=== PATIENT | female | born 1975 | race Caucasian/White ===

== ENCOUNTER 2016-12-21 09:11 | Emergency (ER) | payer OTHER, MEDICAID ==
[~2016-12-21 09:11] MED LIST: BAYER CHEWABLE81 MG PO; BENICAR20 MG PO; CELEBREX50 MG; HYDROCODONE-APA1 TAB PO; STRATTERA60 MG PO
[2016-12-21 09:48] LABS: APPEARANCE HAZY (CLEAR); BILIRUBIN NEGATIVE (NEGATIVE); COLOR YELLOW (YELLOW); GLUCOSE NEGATIVE (NEGATIVE); KETONE NEGATIVE (NEGATIVE); LEUKOCYTE ESTERASE 1+ (NEGATIVE); NITRITE NEGATIVE (NEGATIVE); PROTEIN NEGATIVE (NEGATIVE); SPECIFIC GRAVITY 1.015 (1.005-1.020); UROBILINOGEN NORMAL (NORMAL)
[2016-12-21 09:49] LABS: BACTERIA MODERATE /hpf (NONE SEEN); MUCUS <1+ /lpf (NONE SEEN); RED CELLS - URINE 0-5 /hpf (0-5)
[2016-12-21 09:56] LABS: BASOPHILS 0.4 % (0.0-2.0); EOSINOPHILS 3.5 % (0-7); HEMATOCRIT 38.2 % (36.0-48.0); HEMOGLOBIN 12.3 g/dL (12-16); IMMATURE GRANULOCYTES 0.2 % (0-5); LYMPHOCYTES 18.2 % (15-50); MCH 25.7 pg (26.0-34.0); MCHC 32.2 g/dL (31.0-37.0); MCV 79.9 fL (80.0-100.0); MEAN PLATELET VOLUME 9.3 fL (7.4-10.4); MONOCYTES 6.6 % (2-11); NEUTROPHILS 71.1 % (40-80); PLATELET COUNT 439 10x3/uL (130-400); RBC 4.78 10x6/uL (4.00-5.40); RDW 14.5 % (11.5-14.5); WBC 12.7 10x3/uL (4.8-10.8)
[2016-12-21 10:07] LABS: AMYLASE - SERUM 52 U/L (25-115); LIPASE 165 U/L (73-393)
[2016-12-21 10:33] LABS: ANION GAP 13.9 mmol/L (8-16); BILIRUBIN - TOTAL 0.29 mg/dL (0.2-1.3); CALCIUM 9.4 mg/dL (8.5-10.1); CARBON DIOXIDE 27.2 mmol/L (21.0-32.0); POTASSIUM - SERUM 4.1 mmol/L (3.5-5.1); PROTEIN - SERUM 8.1 g/dL (6.4-8.2)
== END 2016-12-21 13:00 | disposition home or self-care (01) ==
LOC: D.ER 09:11
PROVIDERS: Emergency Medicine
DX: R10.9 Unspecified abdominal pain (principal); N39.0 Urinary tract infection, site not specified; I10 Essential (primary) hypertension; K21.9 Gastro-esophageal reflux disease without esophagitis

== ENCOUNTER 2017-08-25 19:42 | Emergency (ER) | payer OTHER, MEDICAID | END 2017-08-25 21:20 | disposition home or self-care (01) | LOC: D.ER 19:42 | DX: S46.911A Strain of unspecified muscle, fascia and tendon at shoulder and upper arm level, right arm, initial encounter (principal); X58.XXXA Exposure to other specified factors, initial encounter; Y93.89 Activity, other specified; Y92.029 Unspecified place in mobile home as the place of occurrence of the external cause; K21.9 Gastro-esophageal reflux disease without esophagitis; I10 Essential (primary) hypertension ==

== ENCOUNTER 2018-12-19 12:41 | Emergency (ER) | payer OTHER, MEDICAID ==
[~2018-12-19] VITALS: Ht 167.6 cm; Wt 141.1 kg
[2018-12-19 12:51] VITALS: Ht 167.6 cm; Wt 141.1 kg
[2018-12-19 16:11] VITALS: BP 168/90
== END 2018-12-19 16:12 | disposition home or self-care (01) ==
LOC: D.ER 12:41
DX: S89.92XA Unspecified injury of left lower leg, initial encounter (principal); W18.30XA Fall on same level, unspecified, initial encounter; Y93.89 Activity, other specified; Y92.019 Unspecified place in single-family (private) house as the place of occurrence of the external cause

== ENCOUNTER 2019-01-11 19:49 | Emergency (ER) | payer OTHER, MEDICAID ==
[~2019-01-11] VITALS: Ht 167.6 cm; Wt 144.1 kg
[2019-01-11 20:03] VITALS: Ht 167.6 cm; Wt 144.1 kg
[2019-01-11] MEDS ORDERED: METOPROLOL TART50 MG PO (20:04)
[2019-01-11] MEDS ORDERED: KLONOPIN0.5 MG PO (20:05)
[2019-01-11] MEDS ORDERED: MAXZIDE 75/501 TAB PO (20:12)
[2019-01-11 20:34] LABS: BASOPHILS 0.4 % (0-2); EOSINOPHILS 5.5 % (0-7); HEMATOCRIT 39.3 % (36.0-48.0); HEMOGLOBIN 13.1 g/dL (12-16); IMMATURE GRANULOCYTES 0.3 % (0-5); LYMPHOCYTES 19.7 % (15-50); MCH 26.7 pg (26.0-34.0); MCHC 33.3 g/dL (31.0-37.0); MEAN PLATELET VOLUME 9.3 fL (7.4-10.4); MONOCYTES 8.7 % (2-11); NEUTROPHILS 65.4 % (40-80); RBC 4.91 10x6/uL (4.00-5.40); RDW 14.2 % (11.5-14.5)
[2019-01-11 20:35] LABS: PLATELET COUNT 322 10x3/uL (130-400)
[2019-01-11 20:54] LABS: ALBUMIN 3.6 g/dL (3.4-5.0); ALKALINE PHOSPHATASE 84 U/L (46-116); ALT (SGPT) 32 U/L (10-68); BILIRUBIN - TOTAL 0.25 mg/dL (0.2-1.3); CALC OSMOLALITY 274 mosm/kg (275-300); CALCIUM 8.8 mg/dL (8.5-10.1); CARBON DIOXIDE 29.3 mmol/L (21.0-32.0); CHLORIDE - SERUM 100 mmol/L (98-107); CREATININE - SERUM 0.8 mg/dL (0.6-1.3); GLUCOSE 99 mg/dL (74-106); POTASSIUM - SERUM 3.3 mmol/L (3.5-5.1); PROTEIN - SERUM 7.5 g/dL (6.4-8.2); SODIUM 137 mmol/L (136-145); UREA NITROGEN 16 mg/dL (7-18); eGFR NON AFRICAN AMERICAN 82 mL/min (90-120)
[2019-01-11 21:05] LABS: CKMB 0.3 U/L (0.0-3.6); CREATINE KINASE 52 UL (21-215); INR 0.96 (0.85-1.17); PROTIME 12.3 SECONDS (11.6-15.0)
[2019-01-11 21:12] LABS: TROPONIN-I < 0.017 ng/mL (0.000-0.060)
[2019-01-11] MEDS ORDERED: PROTONIX20 MG PO (22:05)
[2019-01-11 22:46] VITALS: BP 101/63
== END 2019-01-11 22:48 | disposition home or self-care (01) ==
LOC: D.ER 19:49
PROVIDERS: Family Medicine
DX: I10 Essential (primary) hypertension (principal); E87.6 Hypokalemia

== ENCOUNTER 2019-10-29 19:19 | Observation (INO) | payer OTHER ==
[~2019-10-29] VITALS: Ht 167.6 cm; Wt 141.9 kg
[~2019-10-29 19:19] MED LIST changes: +KLONOPIN0.5 MG PO; +MAXZIDE 75/501 TAB PO; +METOPROLOL TART50 MG PO; +PROTONIX20 MG PO
[2019-10-29] MEDS ORDERED: TUMERIC (19:31)
[2019-10-29] MEDS ORDERED: POTASSIUM99 M1 PO (19:31)
[2019-10-29] MEDS ORDERED: HAWTHORNE BERRY (19:32)
[2019-10-29] MEDS ORDERED: POTASSIUM CHLOR8 ME1 (19:32)
[2019-10-29 19:54] LABS: BASOPHILS 0.4 % (0-2); EOSINOPHILS 5.7 % (0-7); HEMATOCRIT 41.1 % (36.0-48.0); HEMOGLOBIN 13.4 g/dL (12-16); IMMATURE GRANULOCYTES 0.2 % (0-5); LYMPHOCYTES 25.9 % (15-50); MCH 26.7 pg (26.0-34.0); MCHC 32.6 g/dL (31.0-37.0); MEAN PLATELET VOLUME 9.2 fL (7.4-10.4); NEUTROPHILS 60.8 % (40-80); PLATELET COUNT 357 10x3/uL (130-400); RBC 5.01 10x6/uL (4.00-5.40); RDW 14.5 % (11.5-14.5); WBC 13.2 10x3/uL (4.8-10.8)
[2019-10-29 20:03] LABS: APTT 28.8 SECONDS (22.8-39.4); INR 0.99 (0.85-1.17)
[2019-10-29 20:05] LABS: CALC OSMOLALITY 282 mosm/kg (275-300); CALCIUM 9.1 mg/dL (8.5-10.1); CARBON DIOXIDE 31.6 mmol/L (21.0-32.0); CHLORIDE - SERUM 104 mmol/L (98-107); CREATININE - SERUM 1.1 mg/dL (0.6-1.3); GLUCOSE 92 mg/dL (74-106); POTASSIUM - SERUM 3.2 mmol/L (3.5-5.1); SODIUM 141 mmol/L (136-145); UREA NITROGEN 18 mg/dL (7-18); eGFR NON AFRICAN AMERICAN 57 mL/min (90-120)
[2019-10-29 20:21] LABS: ALBUMIN 3.7 g/dL (3.4-5.0); ALKALINE PHOSPHATASE 103 U/L (30-120); ALT (SGPT) 39 U/L (10-68); BILIRUBIN - TOTAL 0.24 mg/dL (0.2-1.3); CKMB 0.3 U/L (0.0-3.6); CREATINE KINASE 65 UL (21-215); MAGNESIUM - SERUM 2.2 mg/dL (1.8-2.4); PROTEIN - SERUM 7.6 g/dL (6.4-8.2)
[2019-10-29 20:22] LABS: TROPONIN-I < 0.017 ng/mL (0.000-0.060)
[2019-10-29 21:21] LABS: HCG URINE NEGATIVE (NEGATIVE)
[2019-10-29 21:59] VITALS: BP 143/73
--- NOTE | 2019-10-29 22:45 | NUR ---
PT ARRIVED TO ROOM FROM ER VIA BED. PT AMBULATORY, GAIT SLOW AND STEADY. DENIES CHEST PAIN AT THIS TIME. CALL LIGHT IN REACH.
--- NOTE | 2019-10-29 23:48 | NUR ---
PT DENIES CHEST PAIN OR DISCOMFORT. PT RESTING IN BED. WILL CTM.
[2019-10-29 23:55] VITALS: BP 122/73; BMI 50.5
[2019-10-30] VITALS: BP 120/72
[2019-10-30 00:54] LABS: CKMB 0.3 U/L (0.0-3.6); CREATINE KINASE 54 UL (21-215)
[2019-10-30 00:58] LABS: TROPONIN-I < 0.017 ng/mL (0.000-0.060)
[2019-10-30 04:00] VITALS: BP 118/66
[2019-10-30 06:57] LABS: CKMB 0.3 U/L (0.0-3.6); CREATINE KINASE 51 UL (21-215); TROPONIN-I < 0.017 ng/mL (0.000-0.060)
[2019-10-30 08:35] VITALS: Ht 167.6 cm; Wt 141.9 kg
[2019-10-30 09:54] VITALS: BP 114/56
[2019-10-30] MEDS ORDERED: PROTONIX40 MG PO (10:17)
[2019-10-30] MEDS ORDERED: CARAFATE1 G PO (10:18)
--- NOTE | 2019-10-30 10:55 | NUR ---
UPON ADMIT, PATIENT HAS NOT HAD A FLU SHOT. WHEN QUESTIONED, SHE REFUSED ONE.
--- NOTE | 2019-10-30 11:40 | NUR ---
IV AND TELEMETRY DCD. DC PLANS GIVEN. UNDERSTANDING VOICED. ESCORTED TO CAR BY W/C.
--- NOTE | 2019-10-31 08:04 | MORECARE ---
CASE MANAGEMENT DISCHARGE SUMMARY PATIENT: DEVIKA FELICIANO UNIT: [id number] ADM DATE: 10/29/19 AGE: 44 : 71 SEX: F ROOM/BED: D.2116 AUTHOR: CHANNING DIAZ PHYSICIAN: REFERRING PHYSICIAN: SHAHNAZ SERRANO MD DATE OF SERVICE: 10/31/19 Discharge Plan Patient Name: DEVIKA FELICIANO Facility: [facility]:[place] : 1975 Planned Disposition: Home Anticipated Discharge Date: 10/30/19 Discharge Date: 10/30/2019 Expected LOS: 1 Initial Reviewer: [email or web address] Initial Review Date: 10/31/2019 Generated: 10/31/19 9:04 am Patient Name: DEVIKA FELICIANO Page [id number] at 0804 All edits/amendments must be made on the electronic document DICTATION DATE: 10/31/19 0804 WAREHOUSE PICKER: LUCIANO 10/31/19 08 RPT#: [id number] DC DATE:10/30/19 STATUS: DIS IN [address] [place] [address] END OF REPORT
== END 2019-10-30 11:40 | disposition home or self-care (01) ==
LOC: D.ER 19:19 → OBSVTIME 21:01 → D.M2 21:01
PROVIDERS: Emergency Medicine; ADMIT Internal Medicine Nephrology; ATTEND Internal Medicine Nephrology
DX: R07.9 Chest pain, unspecified (principal); K21.9 Gastro-esophageal reflux disease without esophagitis; I10 Essential (primary) hypertension; F17.203 Nicotine dependence unspecified, with withdrawal; F41.9 Anxiety disorder, unspecified; M19.90 Unspecified osteoarthritis, unspecified site

== ENCOUNTER 2021-01-29 12:40 | Emergency (ER) | payer BC ==
[~2021-01-29] VITALS: Ht 167.6 cm; Wt 144.5 kg
[~2021-01-29 12:40] MED LIST changes: +CARAFATE1 G PO; +EZFE 200200 MG PO; +HAWTHORNE BERRY; +MAGNESIUM OXID250 MG PO; +NORCO-7.51 TAB PO; +POTASSIUM CHLOR8 ME1; +POTASSIUM99 M1 PO; +PROTONIX40 MG PO; +TUMERIC; +VITAMIN D10000 UNI1 PO
[2021-01-29 12:50] VITALS: Ht 167.6 cm; Wt 144.5 kg
[2021-01-29 13:37] LABS: BASOPHILS 0.3 % (0-2); EOSINOPHILS 5.4 % (0-7); HEMATOCRIT 42.6 % (36.0-48.0); HEMOGLOBIN 13.8 g/dL (12-16); IMMATURE GRANULOCYTES 0.2 % (0-5); MCH 27.2 pg (26.0-34.0); MCHC 32.4 g/dL (31.0-37.0); MEAN PLATELET VOLUME 9.5 fL (7.4-10.4); MONOCYTES 6.7 % (2-11); NEUTROPHIL ABS# 8.03 10x3/uL (1.56-6.13); NEUTROPHILS 65.4 % (40-80); PLATELET COUNT 360 10x3/uL (130-400); RBC 5.07 10x6/uL (4.00-5.40); WBC 12.3 10x3/uL (4.8-10.8)
[2021-01-29 13:44] LABS: ANION GAP 12.2 mmol/L (8-16); CALCIUM 9.6 mg/dL (8.5-10.1); CARBON DIOXIDE 29.2 mmol/L (21.0-32.0); CREATININE - SERUM 0.9 mg/dL (0.6-1.3); POTASSIUM - SERUM 3.4 mmol/L (3.5-5.1)
[2021-01-29 13:50] LABS: ALBUMIN 4.1 g/dL (3.4-5.0); BILIRUBIN - TOTAL 0.38 mg/dL (0.2-1.3); PROTEIN - SERUM 7.6 g/dL (6.4-8.2)
[2021-01-29 14:09] LABS: BACTERIA MODERATE HPF (NONE SEEN)
[2021-01-29] MEDS ORDERED: IBUPROFEN800 MG PO (15:47)
[2021-01-29] MEDS ORDERED: CEPHALEXIN500 M1 PO (15:47)
[2021-01-29] MEDS ORDERED: CYCLOBENZAPRINE10 MG PO (15:47)
[2021-01-29] MEDS ORDERED: MACROBID100 MG PO (15:47)
[2021-01-29] MEDS ORDERED: ACETAMINOPHEN500 M1 PO (15:47)
[2021-01-29] MEDS ORDERED: PHENAZOPYRIDIN200 MG PO (15:52)
[2021-01-29 16:01] VITALS: BP 159/72
== END 2021-01-29 17:17 | disposition home or self-care (01) ==
LOC: D.ER 12:40
PROVIDERS: Family Medicine
DX: R10.31 Right lower quadrant pain (principal); N30.90 Cystitis, unspecified without hematuria; I10 Essential (primary) hypertension; Z72.0 Tobacco use